=== PATIENT | female | born 1960 | race Caucasian/White ===

== ENCOUNTER 2017-08-30 15:19 | Emergency (ER) | payer SELFPAY ==
[~2017-08-30] VITALS: Ht 165.1 cm; Wt 90.0 kg
[2017-08-30 15:20] VITALS: BP 212/85
[2017-08-30] MEDS ORDERED: AMLO2.5T45 PO (15:22)
[2017-08-30] MEDS ORDERED: METO-396 PO (15:22)
[2017-08-30] MEDS ORDERED: HYDR12.529 PO (15:22)
[2017-08-30] MEDS ORDERED: CLON0.1T PO (15:22)
== END 2017-08-30 17:42 | disposition left against medical advice (07) ==
LOC: ER 15:33
DX: R42 Dizziness and giddiness (principal); Z53.21 Procedure and treatment not carried out due to patient leaving prior to being seen by health care provider

== ENCOUNTER 2018-09-26 16:28 | Inpatient (IN) | payer OTHER ==
[~2018-09-26] VITALS: Ht 160 cm; Wt 108.4 kg
[~2018-09-26 16:28] MED LIST: AMLO2.5T45 PO; CLON0.1T PO; HYDR12.529 PO; METO-396 PO
[2018-09-26 16:57] LABS: BASOPHILS % 0.6 % (0.0-2.0); EOSINOPHILS % 2.3 % (0.0-5.0); HEMATOCRIT. 45.5 % (36.0-48.0); HEMOGLOBIN. 15.3 g/dL (12.0-16.0); LYMPHOCYTES % 35.1 % (20.0-50.0); MEAN CORPUSCULAR HEMOGLOBIN 27.5 pg (28.0-32.0); MEAN PLATELET VOLUME 8.9 fl (7.4-10.4); MONOCYTES % 4.4 % (2.0-8.0); NEUTROPHILS % 57.6 % (40.0-76.0); PLATELET 308 x1000/uL (130-400); RED BLOOD CELL COUNT 5.55 mill/uL (4.2-5.4); RED CELL DISTRIBUTION WIDTH 13.7 % (11.6-14.6)
[2018-09-26 17:04] LABS: INR 1.1; PROTHROMBIN TIME 11.5 sec (9.1-11.1)
[2018-09-26 17:05] LABS: CHLORIDE 103 mEq/L (98-107)
[2018-09-26 17:09] LABS: ETHANOL BLOOD < 10 mg/dL
[2018-09-26 17:12] LABS: LDL CHOLESTEROL 87 mg/dL (5-100)
[2018-09-26] MEDS ORDERED: POTASSIUM CHLORIDE 20MEQ TABLET SR PO ONE ×2 (17:15)
[2018-09-26] MEDS ORDERED: ASPIRIN 81MG TABLET PO ONE (17:15)
[2018-09-26 19:00] LABS: CLARITY URINE CLEAR (CLEAR); COLOR URINE YELLOW (YELLOW); KETONES URINE NEGATIVE (NEGATIVE); LEUKOCYTE ESTERASE URINE NEGATIVE (NEGATIVE); NITRITE URINE NEGATIVE (NEGATIVE); OCCULT BLOOD URINE 3+ (NEGATIVE); PH URINE 7.5 (4.5-8.0); PROTEIN URINE 2+ (NEGATIVE); SPECIFIC GRAVITY URINE 1.007 (1.005-1.030)
[2018-09-26] MEDS ORDERED: ONDANSETRON HCL 4MG/2ML INJ IV PRN (19:00)
[2018-09-26] MEDS ORDERED: CLONIDINE 0.1MG TABLET PO PRN (19:00)
[2018-09-26] MEDS ORDERED: DEXTROSE 50% WATER 50ML SYRINGE IV PRN (19:00)
[2018-09-26 19:15] LABS: *AMPHETAMINES SCREEN URINE NEGATIVE (NEGATIVE)
[2018-09-26 19:16] LABS: *BARBITURATES SCREEN URINE NEGATIVE (NEGATIVE); *BENZODIAZEPINES SCREEN URINE NEGATIVE (NEGATIVE); *COCAINE SCREEN URINE NEGATIVE (NEGATIVE); METHADONE URINE SCREEN NEGATIVE (NEGATIVE); OPIATES URINE SCREEN NEGATIVE (NEGATIVE); PHENCYCLIDINE URINE SCREEN NEGATIVE (NEGATIVE)
[2018-09-26 19:17] LABS: CANNABINOID URINE SCREEN NEGATIVE (NEGATIVE)
[2018-09-26] MEDS: ACETAMINOPHEN 325MG TABLET PO PRN (21:06)
[2018-09-27] VITALS (7 sets, daily range): BP systolic 127–171; BP diastolic 54–84
[2018-09-27] MEDS ORDERED: AMLO10TA80 PO (01:58)
[2018-09-27] MEDS ORDERED: METF-414 PO (01:58)
[2018-09-27] MEDS ORDERED: ATOR40TA70 PO (01:58)
[2018-09-27] MEDS ORDERED: HYDR25TA PO (01:58)
[2018-09-27] MEDS ORDERED: AMLODIPINE 5MG TABLET PO SCH (02:00)
[2018-09-27] MEDS: ACETAMINOPHEN 325MG TABLET PO PRN ×2 (02:55→12:58)
[2018-09-27] MEDS: BLOOD SUGAR DIAGNOSTIC STRIP TEST SCH ×2 (05:36→11:50)
[2018-09-27 06:22] LABS: BASOPHILS % 0.8 % (0.0-2.0); CHLORIDE 102 mEq/L (98-107); EOSINOPHILS % 3.6 % (0.0-5.0); HEMATOCRIT. 41.5 % (36.0-48.0); HEMOGLOBIN. 13.8 g/dL (12.0-16.0); LYMPHOCYTES % 36.1 % (20.0-50.0); MEAN CORPUSCULAR HEMOGLOBIN 27.6 pg (28.0-32.0); MEAN CORPUSCULAR VOLUME 82.8 fL (81.0-99.0); MEAN PLATELET VOLUME 9.1 fl (7.4-10.4); MONOCYTES % 5.3 % (2.0-8.0); NEUTROPHILS % 54.2 % (40.0-76.0); PLATELET 284 x1000/uL (130-400); RED BLOOD CELL COUNT 5.01 mill/uL (4.2-5.4); RED CELL DISTRIBUTION WIDTH 13.4 % (11.6-14.6)
[2018-09-27] MEDS: INSULIN LISPRO 100 UNITS/ML SUBCUT SCH ×2 (06:27→12:58)
[2018-09-27] MEDS ORDERED: ENOXAPARIN 30MG/0.3ML SYR SUBCUT SCH (09:00)
[2018-09-27] MEDS ORDERED: ASPIRIN 81MG TABLET PO SCH (09:00)
[2018-09-27] MEDS ORDERED: LORAZEPAM 1MG TABLET PO NR (12:00)
[2018-09-27] MEDS ORDERED: INSULIN GLARGINE UD 100 UNITS/ML SYR SUBCUT SCH (22:00)
== END 2018-09-27 16:40 | disposition home or self-care (01) | DRG 47 ==
LOC: ER 16:28 → 8WST 18:11 → ENRESERV 23:24 → 8WST 09-27 00:59
PROVIDERS: ADMIT Internal Medicine; ATTEND Internal Medicine
DX: G45.9 Transient cerebral ischemic attack, unspecified (principal); R65.10 Systemic inflammatory response syndrome (SIRS) of non-infectious origin without acute organ dysfunction; E44.0 Moderate protein-calorie malnutrition; E66.01 Morbid (severe) obesity due to excess calories; Z68.41 Body mass index [BMI] 40.0-44.9, adult; E11.9 Type 2 diabetes mellitus without complications; E78.5 Hyperlipidemia, unspecified; E87.6 Hypokalemia; I10 Essential (primary) hypertension; Z88.5 Allergy status to narcotic agent; Z79.84 Long term (current) use of oral hypoglycemic drugs; Z79.899 Other long term (current) drug therapy; Z98.891 History of uterine scar from previous surgery
CPT/HCPCS: 36415; 71045; 80048; 80061; 80305; 82962; 83721; 84443; 84484; 93005; 93880; 96374; 97162; 99285; G0482; J1650; J1815